=== PATIENT | male | born 1955 | race Caucasian/White ===

== ENCOUNTER 2017-12-24 11:26 | Inpatient (IN) | payer MEDICAID ==
[~2017-12-24] VITALS: Ht 172.7 cm; Wt 107.8 kg
[2017-12-24] MEDS ORDERED: SODIUM CHLORIDE 0.9% 1,000 ML IV ONE ×2 (11:35)
[2017-12-24] MEDS ORDERED: chlordiazePOXIDE HCL 25 MG CAP PO ONE (11:45)
[2017-12-24 12:20] LABS: Basophils # (auto) 0 uL; Basophils % (auto) 0.4 % (0.0-2.0); Eosinophils # (auto) 0 uL; Eosinophils % (auto) 0.5 % (0.0-7.0); Hematocrit 43.9 % (41.0-53.0); Lymphocytes # (auto) 2.2 uL; Lymphocytes % (auto) 23.3 % (10.0-50.0); Mean Corpuscular Hemoglobin 33.4 pg (28.0-32.0); Mean Corpuscular Hgb Conc. 34.2 g/dL (32.0-36.0); Mean Corpuscular Volume 97.6 fL (80.0-100.0); Monocytes # (auto) 0.6 uL; Monocytes % (auto) 6.8 % (0.0-12.0); Neutrophils # (auto) 6.4 uL; Nucleated Red Blood Cells % 0.2 %; Platelet Count (auto) 237 10^3/uL (140-450); White Blood Cell 9.3 10^3/uL (4.4-10.8)
[2017-12-24] MEDS ORDERED: ESCI20TA PO (12:27)
[2017-12-24] MEDS ORDERED: CARI-277 PO (12:27)
[2017-12-24] MEDS ORDERED: ZIPR80CA8 PO ×2 (12:27→14:34)
[2017-12-24] MEDS ORDERED: EZET10TA38 PO (12:27)
[2017-12-24] MEDS ORDERED: LEV50T PO (12:27)
[2017-12-24] MEDS ORDERED: LITH600C4 PO (12:27)
[2017-12-24] MEDS ORDERED: MIRT30TA PO (12:27)
[2017-12-24] MEDS ORDERED: HYDR-392 PO (12:27)
[2017-12-24] MEDS ORDERED: LAMO150T2 PO (12:27)
[2017-12-24 12:40] LABS: Alanine Aminotransferase 62 U/L (16-61); Alkaline Phosphatase 99 U/L (45-117); Anion Gap 12 (5-15); Aspartate Aminotransferase 51 U/L (15-37); BUN/Creatinine Ratio 17.6; Bilirubin, Total 0.3 mg/dL (0.2-1.0); Blood Urea Nitrogen 16 mg/dL (7-18); Carbon Dioxide 18 mmol/L (21-32); Chloride 110 mmol/L (98-107); GFR African American 108 mL/min; GFR Non-African American 89 mL/min; Glucose 96 mg/dL (74-106); Potassium 3.7 mmol/L (3.5-5.1); Sodium 140 mmol/L (136-145); Total Protein 7.8 g/dL (6.4-8.2)
[2017-12-24] MEDS ORDERED: chlordiazePOXIDE HCL 25 MG CAP PO PRN (14:15)
[2017-12-24] MEDS ORDERED: ALBUTEROL SULF 2.5 MG/0.5ML(0.5%) NEB SOLN NEB PRN (14:15)
[2017-12-24] MEDS ORDERED: MORPHINE SULFATE 4 MG/ML SYR/VIAL IV PRN ×3 (14:15)
[2017-12-24] MEDS ORDERED: NITROGLYCERIN 0.4 MG SL TAB SL PRN (14:15)
[2017-12-24] MEDS ORDERED: PROMETHAZINE HCL 25 MG/ML 1ML IV PRN (14:15)
[2017-12-24] MEDS ORDERED: LORazepam 2MG/ML-1ML VIAL IV PRN (14:15)
[2017-12-24] MEDS ORDERED: THIAMINE HCL 100 MG/ML 2ML VIAL IV SCH (14:30)
[2017-12-24] MEDS ORDERED: HYDR-531 PO (14:53)
[2017-12-24] MEDS: HYDROcodone-ACET 10/325MG TAB PO PRN ×2 (14:57→23:10)
[2017-12-24] MEDS: NICOTINE 21MG/24 HR TOPICAL PATCH TD SCH (15:08)
[2017-12-24] MEDS: DOXYCYCLINE HYC 100MG/250ML 250 ML IV SCH (15:08)
[2017-12-24] MEDS: CARISOPRODOL 350 MG TAB PO SCH ×2 (15:27→21:50)
[2017-12-24] MEDS: MULTIPLE VITAMIN IV SCH (16:17)
[2017-12-24] MEDS: [UNRECOGNIZED DRUG - OTHER] IV SCH (16:17)
[2017-12-24] MEDS: MAGNESIUM SULF IV SCH (16:17)
[2017-12-24] MEDS: FOLIC ACID IV SCH (16:17)
[2017-12-24 16:20] LABS: Urine Bacteria NONE SEEN /hpf (None Seen); Urine Blood Negative /uL (Negative); Urine Specific Gravity 1.011 (1.001-1.035); Urine WBC 3 /hpf (0 - 3)
[2017-12-24 17:19] VITALS: BP 121/72
[2017-12-24] MEDS: IPRATROPIUM BROM 0.5 MG/2.5ML INH SOL NEB SCH (18:00)
[2017-12-24] MEDS: ALBUTEROL SULF 2.5 MG/0.5ML(0.5%) NEB SOLN NEB SCH (18:00)
[2017-12-24] MEDS: chlordiazePOXIDE HCL 5 MG CAP PO SCH ×2 (18:14→23:11)
[2017-12-24 18:34] LABS: CRP High Sensitivity 0.16 mg/dL (< 0.3); Uric Acid 7.5 mg/dL (3.5-7.2)
[2017-12-24] MEDS: LITHIUM CARBONATE 300 MG TAB PO SCH (21:50)
[2017-12-24] MEDS: MIRTAZAPINE 30 MG TAB PO SCH (21:50)
[2017-12-24] MEDS: SODIUM CHLOR 0.9% PF (SALINE LOCK) 10ML VIAL IV SCH (21:50)
[2017-12-24] MEDS: ZIPRASIDONE 80 MG PO SCH (21:51)
[2017-12-24 22:00] VITALS: BP 135/78
[2017-12-24] MEDS ORDERED: PATIENTS OWN MEDICATION (Lithium Carbonate 600 MG) PO SCH (22:00)
[2017-12-25] MEDS: ALBUTEROL SULF 2.5 MG/0.5ML(0.5%) NEB SOLN NEB SCH ×4 (00:23→18:08)
[2017-12-25] MEDS: IPRATROPIUM BROM 0.5 MG/2.5ML INH SOL NEB SCH ×4 (00:23→18:08)
[2017-12-25] MEDS: DOXYCYCLINE HYC 100MG/250ML 250 ML IV SCH ×2 (02:27→14:02)
[2017-12-25 05:00] VITALS: BP 126/66
[2017-12-25] MEDS: ZIPRASIDONE 40 MG PO SCH (05:23)
[2017-12-25] MEDS: SODIUM CHLOR 0.9% PF (SALINE LOCK) 10ML VIAL IV SCH ×3 (06:31→21:42)
[2017-12-25] MEDS: CARISOPRODOL 350 MG TAB PO SCH (06:31)
[2017-12-25] MEDS: chlordiazePOXIDE HCL 5 MG CAP PO SCH ×4 (06:31→23:40)
[2017-12-25] MEDS: LEVOTHYROXINE SODIUM 50 MCG TAB PO SCH (06:32)
[2017-12-25] MEDS: HYDROcodone-ACET 10/325MG TAB PO PRN ×2 (06:46→17:40)
[2017-12-25 07:15] LABS: Albumin 3.2 g/dL (3.4-5.0); BUN/Creatinine Ratio 15.5; Bilirubin, Total 0.4 mg/dL (0.2-1.0); Calcium 8.3 mg/dL (8.5-10.1); Potassium 3.9 mmol/L (3.5-5.1); Total Protein 6.3 g/dL (6.4-8.2)
[2017-12-25 08:00] VITALS: BP 130/83
[2017-12-25 09:12] VITALS: BP 130/83
[2017-12-25] MEDS: THIAMINE HCL 100 MG TAB PO SCH (09:55)
[2017-12-25] MEDS: lamoTRIgine 100 MG TAB PO SCH (09:56)
[2017-12-25] MEDS: LITHIUM CARBONATE 300 MG TAB PO SCH ×2 (09:56→21:42)
[2017-12-25] MEDS: EZETIMIBE SIMVASTATIN PO SCH (09:57)
[2017-12-25] MEDS: NICOTINE 21MG/24 HR TOPICAL PATCH TD SCH (09:57)
[2017-12-25] MEDS ORDERED: PATIENTS OWN MEDICATION (Lamotrigine (Lamictal) 1 TAB) PO SCH (10:00)
[2017-12-25 12:24] VITALS: BP 122/78
[2017-12-25 17:00] VITALS: BP 129/81
[2017-12-25 21:40] VITALS: BP 129/73
[2017-12-25] MEDS: MIRTAZAPINE 30 MG TAB PO SCH (21:42)
[2017-12-25] MEDS: ZIPRASIDONE 80 MG PO SCH (22:00)
[2017-12-26] MEDS: ALBUTEROL SULF 2.5 MG/0.5ML(0.5%) NEB SOLN NEB SCH ×4 (00:05→18:50)
[2017-12-26] MEDS: IPRATROPIUM BROM 0.5 MG/2.5ML INH SOL NEB SCH ×4 (00:05→18:50)
[2017-12-26] MEDS: HYDROcodone-ACET 10/325MG TAB PO PRN ×3 (01:39→17:31)
[2017-12-26] MEDS: DOXYCYCLINE HYC 100MG/250ML 250 ML IV SCH ×2 (02:18→13:54)
[2017-12-26 04:50] VITALS: BP 136/85
[2017-12-26 05:57] LABS: Basophils # (auto) 0 uL; Basophils % (auto) 0.3 % (0.0-2.0); Eosinophils # (auto) 0.1 uL; Eosinophils % (auto) 1.6 % (0.0-7.0); Hematocrit 38.6 % (41.0-53.0); Hemoglobin 13.1 g/dL (13.5-17.5); Lymphocytes # (auto) 2.1 uL; Lymphocytes % (auto) 34.5 % (10.0-50.0); Mean Corpuscular Hemoglobin 33.2 pg (28.0-32.0); Mean Corpuscular Hgb Conc. 33.9 g/dL (32.0-36.0); Monocytes # (auto) 0.3 uL; Monocytes % (auto) 5.7 % (0.0-12.0); Neutrophils # (auto) 3.5 uL; Neutrophils % (auto) 57.9 % (37.0-80.0); Nucleated Red Blood Cells % 0.1 %; Platelet Count (auto) 194 10^3/uL (140-450); Red Blood Cells 3.94 10^6/uL (4.5-5.90); Red Cell Distribution Width 13.9 % (11.8-14.3)
[2017-12-26 06:13] LABS: Albumin 3.4 g/dL (3.4-5.0); BUN/Creatinine Ratio 12.3; Calcium 9.2 mg/dL (8.5-10.1); Magnesium 2.2 mg/dL (1.6-2.6); Potassium 3.8 mmol/L (3.5-5.1)
[2017-12-26] MEDS: ZIPRASIDONE 40 MG PO SCH (06:18)
[2017-12-26] MEDS: chlordiazePOXIDE HCL 5 MG CAP PO SCH ×4 (06:18→23:40)
[2017-12-26] MEDS: SODIUM CHLOR 0.9% PF (SALINE LOCK) 10ML VIAL IV SCH ×3 (06:18→21:25)
[2017-12-26] MEDS: LEVOTHYROXINE SODIUM 50 MCG TAB PO SCH (06:18)
[2017-12-26 06:24] LABS: Bilirubin, Total 0.3 mg/dL (0.2-1.0); Total Protein 6.7 g/dL (6.4-8.2)
[2017-12-26 09:03] VITALS: BP 152/81
[2017-12-26] MEDS: lamoTRIgine 100 MG TAB PO SCH (09:14)
[2017-12-26] MEDS: LITHIUM CARBONATE 300 MG TAB PO SCH ×2 (09:15→21:23)
[2017-12-26] MEDS: THIAMINE HCL 100 MG TAB PO SCH (09:15)
[2017-12-26] MEDS: EZETIMIBE SIMVASTATIN PO SCH (09:16)
[2017-12-26] MEDS: NICOTINE 21MG/24 HR TOPICAL PATCH TD SCH (09:16)
[2017-12-26 12:01] VITALS: BP 122/74
[2017-12-26] MEDS: [UNRECOGNIZED DRUG - OTHER] IV SCH (12:25)
[2017-12-26] MEDS: FOLIC ACID IV SCH (12:25)
[2017-12-26] MEDS: MAGNESIUM SULF IV SCH (12:25)
[2017-12-26] MEDS: MULTIPLE VITAMIN IV SCH (12:25)
[2017-12-26 17:36] VITALS: BP 128/70
[2017-12-26 19:30] VITALS: BP 128/70
[2017-12-26] MEDS: MIRTAZAPINE 30 MG TAB PO SCH (21:23)
[2017-12-26] MEDS: ZIPRASIDONE 80 MG PO SCH (21:24)
[2017-12-26 22:11] VITALS: BP 116/72
[2017-12-27] MEDS: IPRATROPIUM BROM 0.5 MG/2.5ML INH SOL NEB SCH ×3 (01:01→11:03)
[2017-12-27] MEDS: ALBUTEROL SULF 2.5 MG/0.5ML(0.5%) NEB SOLN NEB SCH ×3 (01:01→11:03)
[2017-12-27] MEDS: DOXYCYCLINE HYC 100MG/250ML 250 ML IV SCH ×2 (02:15→14:02)
[2017-12-27] MEDS: HYDROcodone-ACET 10/325MG TAB PO PRN (04:18)
[2017-12-27 04:52] VITALS: BP 136/79
[2017-12-27] MEDS: LEVOTHYROXINE SODIUM 50 MCG TAB PO SCH (06:10)
[2017-12-27] MEDS: chlordiazePOXIDE HCL 5 MG CAP PO SCH ×2 (06:10→12:12)
[2017-12-27] MEDS: ZIPRASIDONE 40 MG PO SCH (06:13)
[2017-12-27] MEDS: SODIUM CHLOR 0.9% PF (SALINE LOCK) 10ML VIAL IV SCH ×2 (06:13→14:03)
[2017-12-27 06:58] LABS: Albumin 3.6 g/dL (3.4-5.0); BUN/Creatinine Ratio 13.3; Bilirubin, Total 0.3 mg/dL (0.2-1.0); Calcium 8.9 mg/dL (8.5-10.1); Potassium 4.3 mmol/L (3.5-5.1); Total Protein 7.1 g/dL (6.4-8.2)
[2017-12-27] MEDS: THIAMINE HCL 100 MG TAB PO SCH (08:40)
[2017-12-27] MEDS: lamoTRIgine 100 MG TAB PO SCH (08:40)
[2017-12-27] MEDS: LITHIUM CARBONATE 300 MG TAB PO SCH (08:40)
[2017-12-27] MEDS: EZETIMIBE SIMVASTATIN PO SCH (08:41)
[2017-12-27] MEDS: NICOTINE 21MG/24 HR TOPICAL PATCH TD SCH (08:41)
[2017-12-27 08:56] VITALS: BP 113/64
[2017-12-27] MEDS: [UNRECOGNIZED DRUG - OTHER] IV SCH (12:11)
[2017-12-27] MEDS: MAGNESIUM SULF IV SCH (12:11)
[2017-12-27] MEDS: MULTIPLE VITAMIN IV SCH (12:11)
[2017-12-27] MEDS: FOLIC ACID IV SCH (12:11)
[2017-12-27 12:27] VITALS: BP 119/71
== END 2017-12-27 15:11 | disposition home or self-care (01) | DRG 140 ==
LOC: ER 11:26 → TELE 11:27 → TELE-EAST 20:15
PROVIDERS: ADMIT Internal Medicine; ATTEND Internal Medicine
DX: J44.1 Chronic obstructive pulmonary disease with (acute) exacerbation (principal); F10.231 Alcohol dependence with withdrawal delirium; K76.0 Fatty (change of) liver, not elsewhere classified; K70.9 Alcoholic liver disease, unspecified; E03.9 Hypothyroidism, unspecified; E78.5 Hyperlipidemia, unspecified; F31.9 Bipolar disorder, unspecified; K40.20 Bilateral inguinal hernia, without obstruction or gangrene, not specified as recurrent; K42.9 Umbilical hernia without obstruction or gangrene; G89.21 Chronic pain due to trauma; F17.210 Nicotine dependence, cigarettes, uncomplicated; S93.402A Sprain of unspecified ligament of left ankle, initial encounter; X58.XXXA Exposure to other specified factors, initial encounter; Y93.89 Activity, other specified; V29.9XXS Motorcycle rider (driver) (passenger) injured in unspecified traffic accident, sequela; Y92.89 Other specified places as the place of occurrence of the external cause
CPT/HCPCS: 36415; 71045; 73590; 73610; 73700; 74176; 80053; 80061; 80178; 80320; 81001; 83735; 83880; 84439; 84443; 84484; 84550; 85025; 85652; 86141; 87804; 93306; 93971; 94640; 96361; 96365; J3490

== ENCOUNTER → 2017-12-24 | Emergency (ER) | payer MEDICAID ==
[~2017-12-24] MED LIST: CARI-277 PO; ESCI20TA PO; EZET10TA38 PO; HYDR-392 PO; HYDR-531 PO; LAMO150T2 PO; LEV50T PO; LITH600C4 PO; MIRT30TA PO; ZIPR80CA8 PO
== END | disposition left against medical advice (07) ==
LOC: ER 11:31
DX: M79.89 Other specified soft tissue disorders (principal); Z53.21 Procedure and treatment not carried out due to patient leaving prior to being seen by health care provider
CPT/HCPCS: 93005; J7030

== ENCOUNTER 2022-06-23 13:02 | Inpatient (IN) | payer OTHER, MEDICAID ==
[~2022-06-23] VITALS: Ht 172.7 cm; Wt 97.6 kg
[~2022-06-23 13:02] MED LIST changes: +EZET10TA24 PO; -EZET10TA38 PO; -HYDR-392 PO; +MIRT-66 PO; -MIRT30TA PO; +ZIPR80CA37 PO; -ZIPR80CA8 PO
[2022-06-23] MEDS ORDERED: SODIUM CHLORIDE 0.9% 1,000 ML IV ONE ×2 (13:45)
[2022-06-23] MEDS ORDERED: metroNIDAZOLE 500MG/100ML 100 ML IV ONE (13:45)
[2022-06-23] MEDS ORDERED: cefTRIAXone 1GM/50ML D5W 50 ML IV ONE (13:45)
[2022-06-23] MEDS ORDERED: GASTROGRAFIN 120 ML SOL ONE (13:46)
[2022-06-23 15:45] LABS: Basophils # (auto) 0 10 ^3/uL (0-0.2); Basophils % (auto) 0.3 % (0.0-2.0); Eosinophils # (auto) 0.1 10 ^3/uL (0-0.8); Eosinophils % (auto) 0.5 % (0.0-7.0); Hematocrit 38.2 % (41.0-53.0); Hemoglobin 12.6 g/dL (13.5-17.5); Lymphocytes # (auto) 1.6 10 ^3/uL (0.4-5.4); Lymphocytes % (auto) 12.3 % (10.0-50.0); Mean Corpuscular Hemoglobin 30.4 pg (28.0-32.0); Mean Corpuscular Hgb Conc. 32.9 g/dL (32.0-36.0); Mean Corpuscular Volume 92.4 fL (80.0-100.0); Monocytes # (auto) 0.9 10 ^3/uL (0-1.3); Monocytes % (auto) 6.7 % (0.0-12.0); Neutrophils # (auto) 10.6 10 ^3/uL (1.6-8.6); Neutrophils % (auto) 80.2 % (37.0-80.0); Red Blood Cells 4.13 10^6/uL (4.5-5.90); Red Cell Distribution Width 13.5 % (11.8-14.3); White Blood Cell 13.3 10^3/uL (4.4-10.8)
[2022-06-23 15:58] LABS: Albumin 3.7 g/dL (3.4-5.0); Calcium 9.4 mg/dL (8.5-10.1); Potassium 3.7 mmol/L (3.5-5.1)
[2022-06-23 16:01] LABS: Total Protein 7.5 g/dL (6.4-8.2)
[2022-06-23 16:28] LABS: INR 0.96 (0.9-1.15)
[2022-06-23] MEDS ORDERED: METOPROLOL TARTRATE 1MG/1ML-5ML VIAL IV PRN (18:15)
[2022-06-23] MEDS ORDERED: ONDANSETRON HCL 4 MG/2 ML VIAL IV PRN (18:15)
[2022-06-23] MEDS ORDERED: DEXTROSE (50%) 50ML SYRG IV PRN (18:15)
[2022-06-23] MEDS: D5W/ SOD CHL 0.9%/KCL 20MEQ 1,000 ML IV SCH (18:32)
[2022-06-23] MEDS ORDERED: ROCURONIUM 10MG/ML 10ML VIAL IV ONE (19:59)
[2022-06-23] MEDS ORDERED: SUCCINYLCHOLINE CHLORIDE 20 MG/ML 10ML VIAL IV ONE (19:59)
[2022-06-23] MEDS ORDERED: DexAMETHasone SOD PHOS 10MG/1ML VIAL INJ ONE (20:04)
[2022-06-23] MEDS ORDERED: PROPOFOL 10 MG/ML 20 ML IV ONE (20:04)
[2022-06-23] MEDS ORDERED: NEOSTIGMINE 1 MG/ML INJ (10mg/10ML VIAL) ONE (20:04)
[2022-06-23] MEDS ORDERED: GLYCOPYRROLATE 0.2 MG/ML 1ML VIAL ONE (20:04)
[2022-06-23] MEDS ORDERED: ONDANSETRON HCL 4 MG/2 ML VIAL ONE ×2 (20:08→20:27)
[2022-06-23] MEDS ORDERED: SODIUM CHLORIDE LOCK 20 ML ONE (20:08)
[2022-06-23] MEDS ORDERED: fentaNYL CITRATE 100 MCG/2 ML VL ONE (20:08)
[2022-06-23] MEDS ORDERED: MIDAZOLAM HCL 2MG/2ML 2ml VIAL (1mg/ml) ONE (20:08)
[2022-06-23] MEDS ORDERED: ROPIVACAINE 0.5% (5MG/ML) 20ML AMPULE IJ ONE (20:10)
[2022-06-23] MEDS ORDERED: POVIDONE IODINE 10 % TOPICAL OINT 30GM TOP ONE (20:10)
[2022-06-23] MEDS ORDERED: MORPHINE SULFATE 4 MG/ML SYR/VIAL IV PRN (20:30)
[2022-06-23] MEDS ORDERED: METOCLOPRAMIDE HCL 5MG/ml INJ 2ml VIAL IV PRN (20:30)
[2022-06-23] MEDS ORDERED: ACCU-CHEK COMFORT CURVE STRIP VI ONE (20:30)
[2022-06-23] MEDS ORDERED: HYDROmorphone HCL 2 MG/ML VL/or syr IV PRN ×2 (20:30)
[2022-06-23] MEDS ORDERED: MEPERIDINE HCL (25 MG/ML) 1ML VIAL ONE (20:45)
[2022-06-23] MEDS ORDERED: fentaNYL CITRATE 5 ML ONE (22:17)
[2022-06-23] MEDS ORDERED: ceFAZolin 1GM VL ONE (22:34)
[2022-06-23] MEDS ORDERED: MORPHINE SULFATE INJ 2 MG/ml SYRG IV PRN (23:30)
[2022-06-23] MEDS ORDERED: NITROGLYCERIN 0.4 MG SL TAB SL PRN (23:30)
[2022-06-24] MEDS: ACCU-CHEK COMFORT CURVE STRIP VI SCH ×5 (01:13→22:58)
[2022-06-24] MEDS: InsuLIN REG 1unit/0.01ml Soln (100units/ml) SC SCH ×5 (01:20→22:57)
[2022-06-24] MEDS: PIPERACILLIN-TAZOB 3.375GM 100 ML IV SCH ×5 (01:35→23:03)
[2022-06-24 02:10] VITALS: BP 124/73
[2022-06-24] MEDS: D5W/ SOD CHL 0.9%/KCL 20MEQ 1,000 ML IV SCH ×3 (02:35→16:02)
[2022-06-24 05:00] VITALS: BP 115/62
[2022-06-24] MEDS: MORPHINE SULFATE 4 MG/ML SYR/VIAL IV PRN (06:39)
[2022-06-24 07:07] LABS: Hemoglobin 12.1 g/dL (13.5-17.5); Mean Corpuscular Hgb Conc. 33.5 g/dL (32.0-36.0); Mean Corpuscular Volume 92.3 fL (80.0-100.0); Red Blood Cells 3.89 10^6/uL (4.5-5.90); Red Cell Distribution Width 13.5 % (11.8-14.3); White Blood Cell 7.4 10^3/uL (4.4-10.8)
[2022-06-24 07:13] LABS: Potassium 3.7 mmol/L (3.5-5.1)
[2022-06-24 07:14] LABS: Basophils % (manual) 0 (0.0-2.0); Blast Cells 0; Eosinophils % (manual) 0 (0-7); Metamyelocytes % 0; Myelocytes % 0; Promyelocytes % 0; Reactive Lymphocytes 0
[2022-06-24 07:24] LABS: Albumin 2.9 g/dL (3.4-5.0); BUN/Creatinine Ratio 15.5; Bilirubin, Total 2.6 mg/dL (0.2-1.0); Calcium 9.1 mg/dL (8.5-10.1)
[2022-06-24 08:03] LABS: Band Neutrophils % (manual) 9; Lymphocytes % (manual) 7 (10.0-50.0); Monocytes % (manual) 7 (0-12)
[2022-06-24 09:00] VITALS: BP 113/75
[2022-06-24] MEDS: FAMOTIDINE (10MG/ML) 2ML VL IV SCH ×3 (09:03→21:49)
[2022-06-24 13:00] VITALS: BP 105/63
[2022-06-24] MEDS: MORPHINE SULFATE INJ 2 MG/ml SYRG IV PRN (14:51)
[2022-06-24] MEDS ORDERED: CLINIMIX PER PHARMACY 0 ML IV SCH (15:45)
[2022-06-24 16:57] VITALS: BP 115/65
[2022-06-24] MEDS ORDERED: AMINO ACID INFUSION IN D10W 1,000 ML IV NR (20:00)
[2022-06-24 22:00] VITALS: BP 116/62
[2022-06-25] MEDS: MORPHINE SULFATE 4 MG/ML SYR/VIAL IV PRN ×3 (01:06→14:56)
[2022-06-25 05:00] VITALS: BP 138/78
[2022-06-25] MEDS: InsuLIN REG 1unit/0.01ml Soln (100units/ml) SC SCH ×3 (06:00→18:00)
[2022-06-25] MEDS: ACCU-CHEK COMFORT CURVE STRIP VI SCH ×3 (06:16→18:00)
[2022-06-25] MEDS: PIPERACILLIN-TAZOB 3.375GM 100 ML IV SCH ×3 (06:38→18:18)
[2022-06-25 06:49] LABS: Basophils # (auto) 0.1 10 ^3/uL (0-0.2); Basophils % (auto) 0.5 % (0.0-2.0); Eosinophils # (auto) 0 10 ^3/uL (0-0.8); Eosinophils % (auto) 0.2 % (0.0-7.0); Hematocrit 32.9 % (41.0-53.0); Hemoglobin 11.1 g/dL (13.5-17.5); Lymphocytes # (auto) 1.4 10 ^3/uL (0.4-5.4); Lymphocytes % (auto) 12.6 % (10.0-50.0); Mean Corpuscular Hemoglobin 31.1 pg (28.0-32.0); Mean Corpuscular Hgb Conc. 33.7 g/dL (32.0-36.0); Mean Corpuscular Volume 92.3 fL (80.0-100.0); Monocytes # (auto) 0.8 10 ^3/uL (0-1.3); Monocytes % (auto) 6.9 % (0.0-12.0); Neutrophils % (auto) 79.8 % (37.0-80.0); Nucleated Red Blood Cells % 0.1 %; Red Blood Cells 3.56 10^6/uL (4.5-5.90); Red Cell Distribution Width 13.7 % (11.8-14.3); White Blood Cell 11.2 10^3/uL (4.4-10.8)
[2022-06-25 06:53] LABS: Albumin 2.6 g/dL (3.4-5.0); Calcium 9.1 mg/dL (8.5-10.1); Magnesium 2.5 mg/dL (1.6-2.6); Potassium 3.9 mmol/L (3.5-5.1)
[2022-06-25 06:57] LABS: BUN/Creatinine Ratio 22.6; Bilirubin, Total 1.3 mg/dL (0.2-1.0); Total Protein 7.2 g/dL (6.4-8.2)
[2022-06-25 09:00] VITALS: BP 145/78
[2022-06-25] MEDS: D5W/ SOD CHL 0.9%/KCL 20MEQ 1,000 ML IV SCH ×2 (10:19→20:21)
[2022-06-25] MEDS: FAMOTIDINE (10MG/ML) 2ML VL IV SCH ×2 (10:34→22:44)
[2022-06-25] MEDS: LEVOTHYROXINE SODIUM 100 MCG/5 ML INJ IV SCH (10:35)
[2022-06-25] MEDS: ENOXAPARIN SOD 40 MG/0.4 ML SYRINGE SC SCH (10:36)
[2022-06-25] MEDS ORDERED: POTASSIUM PHOSPHATE 22 MEQ in SODIUM CHL 0.9% 100 ML IV ONE (12:00)
[2022-06-25 13:00] VITALS: BP 144/78
[2022-06-25] MEDS ORDERED: SODIUM PHOSPHATES 20 MEQ in SODIUM CHL 0.9% 100 ML IV ONE (16:00)
[2022-06-25 17:00] VITALS: BP 132/69
[2022-06-25] MEDS: MORPHINE SULFATE INJ 2 MG/ml SYRG IV PRN (18:17)
[2022-06-25] MEDS: AMINO ACID INFUSION IN D10W 1,000 ML IV NR (20:31)
[2022-06-25 22:00] VITALS: BP 134/78
[2022-06-26] MEDS: ACCU-CHEK COMFORT CURVE STRIP VI SCH ×5 (00:29→23:22)
[2022-06-26] MEDS: PIPERACILLIN-TAZOB 3.375GM 100 ML IV SCH ×5 (00:29→23:23)
[2022-06-26] MEDS: HALOPERIDOL LACTATE 5 MG/ML INJ VIAL IM PRN ×2 (02:47→22:36)
[2022-06-26 05:00] VITALS: BP 145/73
[2022-06-26] MEDS: InsuLIN REG 1unit/0.01ml Soln (100units/ml) SC SCH ×5 (05:41→23:22)
[2022-06-26] MEDS: MORPHINE SULFATE 4 MG/ML SYR/VIAL IV PRN ×3 (06:56→18:29)
[2022-06-26 08:20] LABS: Basophils # (auto) 0 10 ^3/uL (0-0.2); Basophils % (auto) 0.2 % (0.0-2.0); Eosinophils # (auto) 0.1 10 ^3/uL (0-0.8); Hemoglobin 9.8 g/dL (13.5-17.5); Lymphocytes # (auto) 0.9 10 ^3/uL (0.4-5.4); Lymphocytes % (auto) 13.2 % (10.0-50.0); Mean Corpuscular Hemoglobin 31.2 pg (28.0-32.0); Mean Corpuscular Hgb Conc. 33.7 g/dL (32.0-36.0); Mean Corpuscular Volume 92.5 fL (80.0-100.0); Monocytes # (auto) 0.4 10 ^3/uL (0-1.3); Monocytes % (auto) 5.2 % (0.0-12.0); Neutrophils # (auto) 5.7 10 ^3/uL (1.6-8.6); Neutrophils % (auto) 80.4 % (37.0-80.0); Red Blood Cells 3.13 10^6/uL (4.5-5.90); Red Cell Distribution Width 13.7 % (11.8-14.3); White Blood Cell 7.1 10^3/uL (4.4-10.8)
[2022-06-26 08:37] LABS: Potassium 3.8 mmol/L (3.5-5.1)
[2022-06-26 08:45] LABS: Albumin 2.3 g/dL (3.4-5.0); BUN/Creatinine Ratio 26.1; Bilirubin, Total 0.9 mg/dL (0.2-1.0); Calcium 8.5 mg/dL (8.5-10.1); Magnesium 2.3 mg/dL (1.6-2.6); Phosphorus 3.2 mg/dL (2.5-4.90); Total Protein 5.7 g/dL (6.4-8.2)
[2022-06-26 09:00] VITALS: BP 115/66
[2022-06-26] MEDS: ENOXAPARIN SOD 40 MG/0.4 ML SYRINGE SC SCH (10:28)
[2022-06-26] MEDS: LEVOTHYROXINE SODIUM 100 MCG/5 ML INJ IV SCH (10:28)
[2022-06-26] MEDS: FAMOTIDINE (10MG/ML) 2ML VL IV SCH ×2 (10:28→21:03)
[2022-06-26] MEDS: NICOTINE 14 MG/24HR TOPICAL PATCH TD SCH (10:29)
[2022-06-26] MEDS: D5W/ SOD CHL 0.9%/KCL 20MEQ 1,000 ML IV SCH (10:41)
[2022-06-26 13:00] VITALS: BP 124/61
[2022-06-26 16:41] VITALS: BP 129/72
[2022-06-26] MEDS: AMINO ACID INFUSION IN D10W 1,000 ML IV NR (20:18)
[2022-06-26 21:33] VITALS: BP 132/58
[2022-06-26] MEDS: MORPHINE SULFATE INJ 2 MG/ml SYRG IV PRN (22:44)
[2022-06-26] MEDS ORDERED: OLAN20TA PO (23:51)
[2022-06-27] MEDS: D5W/ SOD CHL 0.9%/KCL 20MEQ 1,000 ML IV SCH ×2 (01:26→15:15)
[2022-06-27 04:38] VITALS: BP 124/72
[2022-06-27] MEDS: ACCU-CHEK COMFORT CURVE STRIP VI SCH ×3 (05:31→18:00)
[2022-06-27] MEDS: InsuLIN REG 1unit/0.01ml Soln (100units/ml) SC SCH ×3 (05:41→18:00)
[2022-06-27] MEDS: PIPERACILLIN-TAZOB 3.375GM 100 ML IV SCH ×3 (05:41→18:21)
[2022-06-27 07:33] LABS: Basophils # (auto) 0 10 ^3/uL (0-0.2); Basophils % (auto) 0.2 % (0.0-2.0); Eosinophils # (auto) 0.1 10 ^3/uL (0-0.8); Eosinophils % (auto) 1.5 % (0.0-7.0); Hematocrit 31.7 % (41.0-53.0); Hemoglobin 10.6 g/dL (13.5-17.5); Lymphocytes # (auto) 1.1 10 ^3/uL (0.4-5.4); Lymphocytes % (auto) 13.8 % (10.0-50.0); Mean Corpuscular Hgb Conc. 33.5 g/dL (32.0-36.0); Mean Corpuscular Volume 92.6 fL (80.0-100.0); Monocytes # (auto) 0.5 10 ^3/uL (0-1.3); Monocytes % (auto) 6.7 % (0.0-12.0); Neutrophils # (auto) 6.3 10 ^3/uL (1.6-8.6); Neutrophils % (auto) 77.8 % (37.0-80.0); Red Blood Cells 3.42 10^6/uL (4.5-5.90); Red Cell Distribution Width 13.3 % (11.8-14.3); White Blood Cell 8.1 10^3/uL (4.4-10.8)
[2022-06-27 07:49] LABS: Calcium 8.6 mg/dL (8.5-10.1); Potassium 4.4 mmol/L (3.5-5.1)
[2022-06-27 07:51] LABS: BUN/Creatinine Ratio 23.8
[2022-06-27 09:00] VITALS: BP 107/60
[2022-06-27] MEDS: NICOTINE 14 MG/24HR TOPICAL PATCH TD SCH (10:00)
[2022-06-27] MEDS: LEVOTHYROXINE SODIUM 100 MCG/5 ML INJ IV SCH (10:00)
[2022-06-27] MEDS: FAMOTIDINE (10MG/ML) 2ML VL IV SCH ×2 (10:27→22:14)
[2022-06-27] MEDS: ENOXAPARIN SOD 40 MG/0.4 ML SYRINGE SC SCH (10:28)
[2022-06-27] MEDS: MORPHINE SULFATE INJ 2 MG/ml SYRG IV PRN ×3 (10:31→22:14)
[2022-06-27 13:00] VITALS: BP 126/70
[2022-06-27 13:52] LABS: Magnesium 2.1 mg/dL (1.6-2.6); Phosphorus 3.2 mg/dL (2.5-4.90)
[2022-06-27] MEDS ORDERED: TEMAZEPAM 15 MG CAP PO PRN (14:00)
[2022-06-27 14:18] LABS: Albumin 2.4 g/dL (3.4-5.0); Calcium 9.1 mg/dL (8.5-10.1); Potassium 4.1 mmol/L (3.5-5.1)
[2022-06-27 14:21] LABS: BUN/Creatinine Ratio 18.9; Bilirubin, Total 0.7 mg/dL (0.2-1.0); Total Protein 6.6 g/dL (6.4-8.2)
[2022-06-27 17:00] VITALS: BP 123/75
[2022-06-27 22:00] VITALS: BP 120/83
[2022-06-27] MEDS: LITHIUM CARBONATE 300 MG TAB PO SCH (22:14)
[2022-06-27] MEDS: OLANZapine 5 MG TAB PO SCH (22:14)
[2022-06-27] MEDS: MIRTAZAPINE 30 MG TAB PO SCH (22:14)
[2022-06-28] MEDS: ACCU-CHEK COMFORT CURVE STRIP VI SCH ×5 (00:13→23:22)
[2022-06-28] MEDS: InsuLIN REG 1unit/0.01ml Soln (100units/ml) SC SCH ×5 (00:14→23:44)
[2022-06-28] MEDS: PIPERACILLIN-TAZOB 3.375GM 100 ML IV SCH ×5 (03:32→23:48)
[2022-06-28 05:00] VITALS: BP 123/59
[2022-06-28] MEDS: D5W/ SOD CHL 0.9%/KCL 20MEQ 1,000 ML IV SCH ×2 (05:56→19:51)
[2022-06-28 07:00] LABS: Basophils # (auto) 0 10 ^3/uL (0-0.2); Basophils % (auto) 0.3 % (0.0-2.0); Eosinophils # (auto) 0.1 10 ^3/uL (0-0.8); Eosinophils % (auto) 1.5 % (0.0-7.0); Hematocrit 32.5 % (41.0-53.0); Lymphocytes # (auto) 1.5 10 ^3/uL (0.4-5.4); Lymphocytes % (auto) 18.5 % (10.0-50.0); Mean Corpuscular Hemoglobin 30.5 pg (28.0-32.0); Mean Corpuscular Hgb Conc. 33.8 g/dL (32.0-36.0); Mean Corpuscular Volume 90.4 fL (80.0-100.0); Monocytes # (auto) 0.6 10 ^3/uL (0-1.3); Monocytes % (auto) 7.8 % (0.0-12.0); Neutrophils # (auto) 5.7 10 ^3/uL (1.6-8.6); Neutrophils % (auto) 71.9 % (37.0-80.0); Red Cell Distribution Width 13.4 % (11.8-14.3); White Blood Cell 7.9 10^3/uL (4.4-10.8)
[2022-06-28 07:07] LABS: Calcium 8.9 mg/dL (8.5-10.1)
[2022-06-28 07:50] VITALS: BP 111/66
[2022-06-28] MEDS: FAMOTIDINE (10MG/ML) 2ML VL IV SCH ×2 (10:28→21:09)
[2022-06-28] MEDS: NICOTINE 14 MG/24HR TOPICAL PATCH TD SCH (10:28)
[2022-06-28] MEDS: LEVOTHYROXINE SODIUM 100 MCG/5 ML INJ IV SCH (10:28)
[2022-06-28] MEDS: OLANZapine 5 MG TAB PO SCH ×2 (10:28→21:10)
[2022-06-28] MEDS: ENOXAPARIN SOD 40 MG/0.4 ML SYRINGE SC SCH (10:28)
[2022-06-28] MEDS: LITHIUM CARBONATE 300 MG TAB PO SCH ×2 (10:28→21:10)
[2022-06-28] MEDS ORDERED: AMINO ACID INFUSION IN D10W 1,000 ML IV NR ×2 (12:15→20:00)
[2022-06-28 12:45] VITALS: BP 118/68
[2022-06-28 16:30] VITALS: BP 105/70
[2022-06-28] MEDS: MIRTAZAPINE 30 MG TAB PO SCH (21:10)
[2022-06-28 22:00] VITALS: BP 116/66
[2022-06-28] MEDS: MORPHINE SULFATE INJ 2 MG/ml SYRG IV PRN (23:50)
[2022-06-29 05:00] VITALS: BP 118/66
[2022-06-29] MEDS: PIPERACILLIN-TAZOB 3.375GM 100 ML IV SCH ×2 (05:33→12:26)
[2022-06-29] MEDS: InsuLIN REG 1unit/0.01ml Soln (100units/ml) SC SCH ×4 (05:34→23:19)
[2022-06-29] MEDS: ACCU-CHEK COMFORT CURVE STRIP VI SCH ×4 (05:34→23:19)
[2022-06-29 06:05] LABS: Basophils # (auto) 0 10 ^3/uL (0-0.2); Basophils % (auto) 0.2 % (0.0-2.0); Eosinophils # (auto) 0.1 10 ^3/uL (0-0.8); Eosinophils % (auto) 1.4 % (0.0-7.0); Hematocrit 33.3 % (41.0-53.0); Hemoglobin 11.4 g/dL (13.5-17.5); Lymphocytes # (auto) 1.5 10 ^3/uL (0.4-5.4); Lymphocytes % (auto) 17.4 % (10.0-50.0); Mean Corpuscular Hgb Conc. 34.1 g/dL (32.0-36.0); Mean Corpuscular Volume 90.7 fL (80.0-100.0); Monocytes # (auto) 0.7 10 ^3/uL (0-1.3); Monocytes % (auto) 7.6 % (0.0-12.0); Neutrophils # (auto) 6.5 10 ^3/uL (1.6-8.6); Neutrophils % (auto) 73.4 % (37.0-80.0); Red Blood Cells 3.68 10^6/uL (4.5-5.90); Red Cell Distribution Width 13.4 % (11.8-14.3); White Blood Cell 8.8 10^3/uL (4.4-10.8)
[2022-06-29 08:10] VITALS: BP 118/76
[2022-06-29 09:00] VITALS: BP 118/76
[2022-06-29] MEDS: FAMOTIDINE (10MG/ML) 2ML VL IV SCH ×2 (09:51→22:00)
[2022-06-29] MEDS: LEVOTHYROXINE SODIUM 100 MCG/5 ML INJ IV SCH (09:51)
[2022-06-29] MEDS: OLANZapine 5 MG TAB PO SCH ×2 (09:52→22:00)
[2022-06-29] MEDS: LITHIUM CARBONATE 300 MG TAB PO SCH ×2 (09:52→22:00)
[2022-06-29] MEDS: ENOXAPARIN SOD 40 MG/0.4 ML SYRINGE SC SCH (09:52)
[2022-06-29] MEDS: NICOTINE 14 MG/24HR TOPICAL PATCH TD SCH (09:53)
[2022-06-29] MEDS: D5W/ SOD CHL 0.9%/KCL 20MEQ 1,000 ML IV SCH (10:09)
[2022-06-29 13:00] VITALS: BP 120/78
[2022-06-29] MEDS: MORPHINE SULFATE 4 MG/ML SYR/VIAL IV PRN (13:50)
[2022-06-29 17:00] VITALS: BP 110/84
[2022-06-29] MEDS: MIRTAZAPINE 30 MG TAB PO SCH (22:00)
[2022-06-29 23:34] VITALS: BP 104/62
[2022-06-30] VITALS (7 sets, daily range): BP systolic 103–130; BP diastolic 50–78
[2022-06-30] MEDS: D5W/ SOD CHL 0.9%/KCL 20MEQ 1,000 ML IV SCH ×2 (00:27→15:02)
[2022-06-30] MEDS: ACCU-CHEK COMFORT CURVE STRIP VI SCH ×4 (05:52→23:05)
[2022-06-30] MEDS: InsuLIN REG 1unit/0.01ml Soln (100units/ml) SC SCH ×4 (05:52→23:05)
[2022-06-30] MEDS: FAMOTIDINE (10MG/ML) 2ML VL IV SCH ×2 (09:45→23:03)
[2022-06-30] MEDS: LEVOTHYROXINE SODIUM 100 MCG/5 ML INJ IV SCH (09:46)
[2022-06-30] MEDS: LITHIUM CARBONATE 300 MG TAB PO SCH ×2 (09:46→23:48)
[2022-06-30] MEDS: OLANZapine 5 MG TAB PO SCH ×2 (09:46→22:57)
[2022-06-30] MEDS: ENOXAPARIN SOD 40 MG/0.4 ML SYRINGE SC SCH (09:46)
[2022-06-30] MEDS: NICOTINE 14 MG/24HR TOPICAL PATCH TD SCH (09:47)
[2022-06-30] MEDS: MORPHINE SULFATE INJ 2 MG/ml SYRG IV PRN ×2 (09:47→23:44)
[2022-06-30] MEDS: MIRTAZAPINE 30 MG TAB PO SCH (22:58)
[2022-07-01] MEDS: D5W/ SOD CHL 0.9%/KCL 20MEQ 1,000 ML IV SCH ×2 (04:14→23:22)
[2022-07-01 05:00] VITALS: BP 127/81
[2022-07-01] MEDS: InsuLIN REG 1unit/0.01ml Soln (100units/ml) SC SCH ×3 (06:00→17:31)
[2022-07-01] MEDS: ACCU-CHEK COMFORT CURVE STRIP VI SCH ×3 (06:42→17:30)
[2022-07-01] MEDS: LEVOTHYROXINE SODIUM 50 MCG TAB PO SCH (06:43)
[2022-07-01 08:20] VITALS: BP 114/63
[2022-07-01] MEDS: OLANZapine 5 MG TAB PO SCH ×2 (09:23→21:55)
[2022-07-01] MEDS: NICOTINE 14 MG/24HR TOPICAL PATCH TD SCH (09:23)
[2022-07-01] MEDS: LITHIUM CARBONATE 300 MG TAB PO SCH ×2 (09:23→21:55)
[2022-07-01] MEDS: FAMOTIDINE (10MG/ML) 2ML VL IV SCH ×2 (09:23→21:58)
[2022-07-01] MEDS: ENOXAPARIN SOD 40 MG/0.4 ML SYRINGE SC SCH (09:24)
[2022-07-01] MEDS: EZETIMIBE SIMVASTATIN PO SCH (10:00)
[2022-07-01 12:25] VITALS: BP 122/60
[2022-07-01 16:10] VITALS: BP 157/79
[2022-07-01 20:00] VITALS: BP 91/67
[2022-07-01] MEDS: MORPHINE SULFATE INJ 2 MG/ml SYRG IV PRN (20:21)
[2022-07-01 21:42] VITALS: BP 95/67
[2022-07-01] MEDS: MIRTAZAPINE 30 MG TAB PO SCH (21:56)
[2022-07-02] MEDS: ACCU-CHEK COMFORT CURVE STRIP VI SCH ×4 (00:17→18:01)
[2022-07-02 05:10] VITALS: BP 107/59
[2022-07-02] MEDS: InsuLIN REG 1unit/0.01ml Soln (100units/ml) SC SCH ×4 (06:00→18:00)
[2022-07-02] MEDS: LEVOTHYROXINE SODIUM 50 MCG TAB PO SCH (06:10)
[2022-07-02 09:00] VITALS: BP 119/63
[2022-07-02] MEDS: D5W/ SOD CHL 0.9%/KCL 20MEQ 1,000 ML IV SCH (09:39)
[2022-07-02] MEDS: FAMOTIDINE (10MG/ML) 2ML VL IV SCH ×2 (10:00→11:14)
[2022-07-02] MEDS: EZETIMIBE SIMVASTATIN PO SCH (10:00)
[2022-07-02] MEDS: LITHIUM CARBONATE 300 MG TAB PO SCH ×2 (11:14→21:38)
[2022-07-02] MEDS: OLANZapine 5 MG TAB PO SCH ×2 (11:14→21:39)
[2022-07-02] MEDS: ENOXAPARIN SOD 40 MG/0.4 ML SYRINGE SC SCH (11:15)
[2022-07-02] MEDS: NICOTINE 14 MG/24HR TOPICAL PATCH TD SCH (11:16)
[2022-07-02 13:00] VITALS: BP 146/59
[2022-07-02 16:51] LABS: Basophils # (auto) 0 10 ^3/uL (0-0.2); Basophils % (auto) 0.3 % (0.0-2.0); Eosinophils # (auto) 0.1 10 ^3/uL (0-0.8); Eosinophils % (auto) 1.1 % (0.0-7.0); Hematocrit 36.9 % (41.0-53.0); Hemoglobin 12.2 g/dL (13.5-17.5); Lymphocytes # (auto) 1.6 10 ^3/uL (0.4-5.4); Lymphocytes % (auto) 15.9 % (10.0-50.0); Mean Corpuscular Hemoglobin 30.6 pg (28.0-32.0); Mean Corpuscular Hgb Conc. 33.2 g/dL (32.0-36.0); Mean Corpuscular Volume 92.3 fL (80.0-100.0); Monocytes # (auto) 0.5 10 ^3/uL (0-1.3); Monocytes % (auto) 5.2 % (0.0-12.0); Neutrophils # (auto) 7.8 10 ^3/uL (1.6-8.6); Neutrophils % (auto) 77.5 % (37.0-80.0); Red Blood Cells 3.99 10^6/uL (4.5-5.90); Red Cell Distribution Width 13.9 % (11.8-14.3); White Blood Cell 10.1 10^3/uL (4.4-10.8)
[2022-07-02 17:00] VITALS: BP 121/75
[2022-07-02 17:14] LABS: BUN/Creatinine Ratio 11.2; Calcium 10.1 mg/dL (8.5-10.1); Potassium 3.9 mmol/L (3.5-5.1)
[2022-07-02] MEDS: MIRTAZAPINE 30 MG TAB PO SCH (21:39)
[2022-07-02] MEDS: HYDROcodone-ACET 5/325MG TAB PO PRN (21:41)
[2022-07-02 22:00] VITALS: BP 111/73
[2022-07-03] MEDS: D5W/ SOD CHL 0.9%/KCL 20MEQ 1,000 ML IV SCH ×2 (00:04→18:03)
[2022-07-03] MEDS: ACCU-CHEK COMFORT CURVE STRIP VI SCH ×4 (00:12→18:02)
[2022-07-03 05:00] VITALS: BP 120/71
[2022-07-03] MEDS: InsuLIN REG 1unit/0.01ml Soln (100units/ml) SC SCH ×4 (05:44→18:00)
[2022-07-03] MEDS: LEVOTHYROXINE SODIUM 50 MCG TAB PO SCH (06:22)
[2022-07-03 08:12] VITALS: BP 117/73
[2022-07-03] MEDS: EZETIMIBE SIMVASTATIN PO SCH (10:00)
[2022-07-03] MEDS: LITHIUM CARBONATE 300 MG TAB PO SCH ×2 (10:12→21:28)
[2022-07-03] MEDS: OLANZapine 5 MG TAB PO SCH ×2 (10:12→21:29)
[2022-07-03] MEDS: ENOXAPARIN SOD 40 MG/0.4 ML SYRINGE SC SCH (10:13)
[2022-07-03] MEDS: NICOTINE 14 MG/24HR TOPICAL PATCH TD SCH (10:13)
[2022-07-03] MEDS: HYDROcodone-ACET 5/325MG TAB PO PRN ×2 (11:30→21:27)
[2022-07-03 12:33] VITALS: BP 107/75
[2022-07-03 17:00] VITALS: BP 116/62
[2022-07-03] MEDS: MIRTAZAPINE 30 MG TAB PO SCH (21:27)
[2022-07-03 22:00] VITALS: BP 122/64
[2022-07-04 05:34] VITALS: BP 97/53
[2022-07-04] MEDS: LEVOTHYROXINE SODIUM 50 MCG TAB PO SCH (05:38)
[2022-07-04] MEDS: ACCU-CHEK COMFORT CURVE STRIP VI SCH ×5 (05:44→23:22)
[2022-07-04] MEDS: InsuLIN REG 1unit/0.01ml Soln (100units/ml) SC SCH ×5 (05:44→23:22)
[2022-07-04 08:48] VITALS: BP 99/47
[2022-07-04] MEDS: OLANZapine 5 MG TAB PO SCH ×2 (09:34→23:13)
[2022-07-04] MEDS: ENOXAPARIN SOD 40 MG/0.4 ML SYRINGE SC SCH (09:34)
[2022-07-04] MEDS: LITHIUM CARBONATE 300 MG TAB PO SCH ×2 (09:35→23:13)
[2022-07-04] MEDS: NICOTINE 14 MG/24HR TOPICAL PATCH TD SCH (09:40)
[2022-07-04] MEDS: EZETIMIBE SIMVASTATIN PO SCH (11:57)
[2022-07-04] MEDS: HYDROcodone-ACET 5/325MG TAB PO PRN ×2 (12:04→23:11)
[2022-07-04 12:31] VITALS: BP 122/63
[2022-07-04 16:37] VITALS: BP 95/66
[2022-07-04 22:00] VITALS: BP 113/76
[2022-07-04] MEDS: MIRTAZAPINE 30 MG TAB PO SCH (23:15)
== END 2022-07-05 01:30 | disposition home health service (06) | DRG 329 ==
LOC: ER 13:02 → TELE-WESTW 20:15 → TELE 23:23 → TELE-WESTW 06-24 00:20 → WEST WING 07-01 15:18
PROVIDERS: ADMIT Surgery; ATTEND Internal Medicine
PROC: 0DBL0ZZ Excision of Transverse Colon, Open Approach (ICD-10-PCS; 2022-06-23)
PROC: 0DBU0ZZ Excision of Omentum, Open Approach (ICD-10-PCS; 2022-06-23)
PROC: 0WQF0ZZ Repair Abdominal Wall, Open Approach (ICD-10-PCS; principal; 2022-06-23 20:27)
DX: K43.6 Other and unspecified ventral hernia with obstruction, without gangrene (principal); K63.1 Perforation of intestine (nontraumatic); K55.9 Vascular disorder of intestine, unspecified; F31.60 Bipolar disorder, current episode mixed, unspecified; E03.9 Hypothyroidism, unspecified; G47.00 Insomnia, unspecified; Z20.822 Contact with and (suspected) exposure to COVID-19; E78.5 Hyperlipidemia, unspecified; K42.0 Umbilical hernia with obstruction, without gangrene; F17.200 Nicotine dependence, unspecified, uncomplicated; I10 Essential (primary) hypertension; Z63.4 Disappearance and death of family member; Z82.49 Family history of ischemic heart disease and other diseases of the circulatory system; Z83.3 Family history of diabetes mellitus; Z71.6 Tobacco abuse counseling
CPT/HCPCS: 36415; 71045; 74176; 74250; 80048; 80053; 80178; 82962; 83605; 83735; 84100; 84478; 84484; 85007; 85025; 85027; 85610; 86850; 86900; 86901; 87040; 87081; 93005; 93306; 96365; 96368; 97110; 97116; 97163; 97530; G0378; J0330; J0690; J0696; J1100; J1815; J2250; J2405; J2543; J2704; J3490

== ENCOUNTER → 2022-11-16 | Outpatient (CLI) | payer OTHER, MEDICAID ==
[~2022-11-16] MED LIST changes: +OLAN20TA PO
[2022-11-16 11:06] LABS: Basophils # (auto) 0 10 ^3/uL (0-0.2); Basophils % (auto) 0.5 % (0.0-2.0); Eosinophils # (auto) 0 10 ^3/uL (0-0.8); Eosinophils % (auto) 0.6 % (0.0-7.0); Hematocrit 42.4 % (41.0-53.0); Hemoglobin 14.3 g/dL (13.5-17.5); Lymphocytes # (auto) 1.8 10 ^3/uL (0.4-5.4); Lymphocytes % (auto) 27.9 % (10.0-50.0); Mean Corpuscular Hemoglobin 31.3 pg (28.0-32.0); Mean Corpuscular Hgb Conc. 33.6 g/dL (32.0-36.0); Mean Corpuscular Volume 93.3 fL (80.0-100.0); Monocytes # (auto) 0.5 10 ^3/uL (0-1.3); Monocytes % (auto) 7.3 % (0.0-12.0); Neutrophils % (auto) 63.7 % (37.0-80.0); Red Blood Cells 4.55 10^6/uL (4.5-5.90); Red Cell Distribution Width 13.9 % (11.8-14.3); White Blood Cell 6.3 10^3/uL (4.4-10.8)
[2022-11-16 11:31] LABS: Albumin 4.2 g/dL (3.4-5.0)
[2022-11-16 11:35] LABS: BUN/Creatinine Ratio 13.3; Bilirubin, Total 0.4 mg/dL (0.2-1.0); Total Protein 8.1 g/dL (6.4-8.2)
== END | disposition home or self-care (01) ==
LOC: LAB 10:34
PROVIDERS: ATTEND Specialist
DX: E03.9 Hypothyroidism, unspecified (principal); F11.20 Opioid dependence, uncomplicated; G89.4 Chronic pain syndrome; E78.1 Pure hyperglyceridemia; J44.9 Chronic obstructive pulmonary disease, unspecified; Z68.31 Body mass index [BMI] 31.0-31.9, adult
CPT/HCPCS: 36415; 80053; 80061; 84443; 85025

== ENCOUNTER 2022-12-07 11:20 | Emergency (ER) | payer OTHER, MEDICAID ==
[~2022-12-07] VITALS: Ht 172.7 cm; Wt 99.5 kg
[2022-12-07 11:31] VITALS: BP 116/73
[2022-12-07 12:08] LABS: Basophils # (auto) 0 10 ^3/uL (0-0.2); Basophils % (auto) 0.3 % (0.0-2.0); Eosinophils # (auto) 0.1 10 ^3/uL (0-0.8); Hematocrit 42.3 % (41.0-53.0); Hemoglobin 14.6 g/dL (13.5-17.5); Lymphocytes # (auto) 2.4 10 ^3/uL (0.4-5.4); Lymphocytes % (auto) 32.8 % (10.0-50.0); Mean Corpuscular Hemoglobin 31.9 pg (28.0-32.0); Mean Corpuscular Hgb Conc. 34.5 g/dL (32.0-36.0); Mean Corpuscular Volume 92.5 fL (80.0-100.0); Monocytes # (auto) 0.5 10 ^3/uL (0-1.3); Monocytes % (auto) 7.1 % (0.0-12.0); Neutrophils # (auto) 4.3 10 ^3/uL (1.6-8.6); Neutrophils % (auto) 58.8 % (37.0-80.0); Nucleated Red Blood Cells % 0.1 %; Red Blood Cells 4.58 10^6/uL (4.5-5.90); White Blood Cell 7.3 10^3/uL (4.4-10.8)
[2022-12-07 12:20] LABS: Calcium 9.3 mg/dL (8.5-10.1)
[2022-12-07 12:24] LABS: Urine Blood Negative /uL (Negative); Urine Specific Gravity 1.012 (1.001-1.035)
[2022-12-07 12:26] LABS: BUN/Creatinine Ratio 16.7; Bilirubin, Total 0.4 mg/dL (0.2-1.0); Total Protein 7.6 g/dL (6.4-8.2)
[2022-12-07] MEDS ORDERED: DOCU-94 PO (13:17)
[2022-12-07] MEDS ORDERED: DOCUSATE SOD 100 MG CAP PO ONE (13:30)
== END 2022-12-07 16:24 | disposition home or self-care (01) ==
LOC: ER 11:20
DX: K42.9 Umbilical hernia without obstruction or gangrene (principal); R10.32 Left lower quadrant pain; K59.00 Constipation, unspecified; E11.9 Type 2 diabetes mellitus without complications; I10 Essential (primary) hypertension; Z79.899 Other long term (current) drug therapy; Z98.890 Other specified postprocedural states
CPT/HCPCS: 36415; 74176; 80053; 81003; 85025; 93005; 99285; J7030

== ENCOUNTER → 2023-02-22 | Outpatient (CLI) | payer MEDICAID ==
[~2023-02-22] MED LIST changes: +DOCU-94 PO
[2023-02-22 11:29] LABS: Basophils # (auto) 0 10 ^3/uL (0-0.2); Basophils % (auto) 0.3 % (0.0-2.0); Eosinophils # (auto) 0.1 10 ^3/uL (0-0.8); Eosinophils % (auto) 1.3 % (0.0-7.0); Hematocrit 39.2 % (41.0-53.0); Hemoglobin 13.5 g/dL (13.5-17.5); Lymphocytes # (auto) 2.3 10 ^3/uL (0.4-5.4); Lymphocytes % (auto) 34.4 % (10.0-50.0); Mean Corpuscular Hemoglobin 31.4 pg (28.0-32.0); Mean Corpuscular Hgb Conc. 34.3 g/dL (32.0-36.0); Mean Corpuscular Volume 91.5 fL (80.0-100.0); Monocytes # (auto) 0.4 10 ^3/uL (0-1.3); Monocytes % (auto) 6.5 % (0.0-12.0); Neutrophils # (auto) 3.9 10 ^3/uL (1.6-8.6); Neutrophils % (auto) 57.5 % (37.0-80.0); Nucleated Red Blood Cells % 0.2 %; Red Blood Cells 4.29 10^6/uL (4.5-5.90); Red Cell Distribution Width 13.6 % (11.8-14.3); White Blood Cell 6.8 10^3/uL (4.4-10.8)
[2023-02-22 12:52] LABS: Albumin 3.9 g/dL (3.4-5.0); Calcium 9.4 mg/dL (8.5-10.1); Potassium 4.1 mmol/L (3.5-5.1)
[2023-02-22 12:58] LABS: BUN/Creatinine Ratio 14.9 (10.0-20.0); Bilirubin, Total 0.4 mg/dL (0.2-1.0); Total Protein 7.5 g/dL (6.4-8.2)
== END | disposition home or self-care (01) ==
LOC: LAB 11:03
PROVIDERS: ATTEND Internal Medicine Infectious Disease
DX: F31.72 Bipolar disorder, in full remission, most recent episode hypomanic (principal)
CPT/HCPCS: 36415; 80053; 80061; 80178; 83036; 84443; 85025

== ENCOUNTER → 2023-05-31 | Outpatient (CLI) | payer OTHER, MEDICAID ==
[~2023-05-31] MED LIST changes: -MIRT-66 PO; +MIRT-94 PO
[2023-05-31 10:59] LABS: Basophils # (auto) 0 10 ^3/uL (0-0.2); Basophils % (auto) 0.3 % (0.0-2.0); Eosinophils # (auto) 0.1 10 ^3/uL (0-0.8); Eosinophils % (auto) 1.1 % (0.0-7.0); Hematocrit 40.5 % (41.0-53.0); Hemoglobin 13.8 g/dL (13.5-17.5); Lymphocytes # (auto) 2.2 10 ^3/uL (0.4-5.4); Lymphocytes % (auto) 33.4 % (10.0-50.0); Mean Corpuscular Hemoglobin 31.1 pg (28.0-32.0); Mean Corpuscular Volume 91.5 fL (80.0-100.0); Monocytes # (auto) 0.5 10 ^3/uL (0-1.3); Monocytes % (auto) 7.1 % (0.0-12.0); Neutrophils # (auto) 3.8 10 ^3/uL (1.6-8.6); Neutrophils % (auto) 58.1 % (37.0-80.0); Red Blood Cells 4.43 10^6/uL (4.5-5.90); Red Cell Distribution Width 14.1 % (11.8-14.3); White Blood Cell 6.6 10^3/uL (4.4-10.8)
[2023-05-31 11:44] LABS: Potassium 4.1 mmol/L (3.5-5.1)
[2023-05-31 11:55] LABS: Albumin 3.9 g/dL (3.4-5.0); BUN/Creatinine Ratio 15.9 (10.0-20.0); Bilirubin, Total 0.4 mg/dL (0.2-1.0); Calcium 9.6 mg/dL (8.5-10.1); Total Protein 7.1 g/dL (6.4-8.2)
== END | disposition home or self-care (01) ==
LOC: LAB 10:33
PROVIDERS: ATTEND Internal Medicine Infectious Disease
DX: E03.9 Hypothyroidism, unspecified (principal); F11.20 Opioid dependence, uncomplicated; J44.9 Chronic obstructive pulmonary disease, unspecified; Z68.30 Body mass index [BMI] 30.0-30.9, adult
CPT/HCPCS: 36415; 80053; 82465; 83036; 84439; 84443; 85025; 86803

== ENCOUNTER → 2023-11-23 | Outpatient (CLI) | payer OTHER, MEDICAID ==
[2023-11-23 12:18] LABS: Basophils # (auto) 0 10 ^3/uL (0-0.2); Basophils % (auto) 0.4 % (0.0-2.0); Eosinophils # (auto) 0.1 10 ^3/uL (0-0.8); Hematocrit 42.2 % (41.0-53.0); Hemoglobin 14.2 g/dL (13.5-17.5); Lymphocytes # (auto) 2.4 10 ^3/uL (0.4-5.4); Lymphocytes % (auto) 31.3 % (10.0-50.0); Mean Corpuscular Hemoglobin 31.4 pg (28.0-32.0); Mean Corpuscular Hgb Conc. 33.6 g/dL (32.0-36.0); Mean Corpuscular Volume 93.6 fL (80.0-100.0); Monocytes # (auto) 0.5 10 ^3/uL (0-1.3); Monocytes % (auto) 6.6 % (0.0-12.0); Neutrophils # (auto) 4.7 10 ^3/uL (1.6-8.6); Neutrophils % (auto) 60.7 % (37.0-80.0); Nucleated Red Blood Cells % 0.2 %; Red Blood Cells 4.51 10^6/uL (4.5-5.90); Red Cell Distribution Width 13.9 % (11.8-14.3); White Blood Cell 7.8 10^3/uL (4.4-10.8)
[2023-11-23 12:44] LABS: Alanine Aminotransferase 23 U/L (7-40); Albumin 4.5 g/dL (3.2-4.8); Alkaline Phosphatase 94 U/L (46-116); Anion Gap 3 (5-15); Aspartate Aminotransferase 22 U/L (13-40); BUN/Creatinine Ratio 9.8 (10.0-20.0); Bilirubin, Total 0.5 mg/dL (0.2-1.0); Blood Urea Nitrogen 11 mg/dL (9-23); Calcium 10.2 mg/dL (8.5-10.1); Carbon Dioxide 25 mmol/L (20-30); Chloride 113 mmol/L (98-107); Cholesterol 140 mg/dL (< 200); Glucose 99 mg/dL (74-106); HDL Cholesterol 35 mg/dL (40-59); LDL Cholesterol 78 mg/dL (< 100); Potassium 4.1 mmol/L (3.5-5.1); Sodium 141 mmol/L (136-145); Total Protein 6.8 g/dL (5.7-8.2); Triglycerides 203 mg/dL (< 150)
== END | disposition home or self-care (01) ==
LOC: LAB 11:39
PROVIDERS: ATTEND Specialist
DX: Z00.00 Encounter for general adult medical examination without abnormal findings (principal); N18.2 Chronic kidney disease, stage 2 (mild); E66.01 Morbid (severe) obesity due to excess calories; G25.70 Drug induced movement disorder, unspecified; K43.2 Incisional hernia without obstruction or gangrene; J43.9 Emphysema, unspecified
CPT/HCPCS: 36415; 80053; 80061; 84153; 85025

== ENCOUNTER 2024-03-30 06:15 | Inpatient (IN) | payer OTHER, MEDICAID ==
[2024-03-27 12:29] LABS: INR 0.96 (0.9-1.15); Partial Thromboplastin Time 28.8 SEC (24.5-34.5); Prothrombin Time 10.2 sec (9.3-11.8)
[~2024-03-30] VITALS: Ht 172.7 cm; Wt 96.0 kg
[~2024-03-30 06:15] MED LIST changes: -ZIPR80CA37 PO; +ZIPR80CA43 PO
[2024-03-30] MEDS: ceFAZolin 2 GM/D5W50ml 50 ML IV ONE (07:30)
[2024-03-30] MEDS ORDERED: KETAMINE 50mg/ML 1ml syringe ONE (08:09)
[2024-03-30] MEDS ORDERED: ROCURONIUM 10MG/ML 10ML VIAL IV ONE (08:10)
[2024-03-30] MEDS ORDERED: SODIUM CHLORIDE LOCK 10 ML ONE (08:10)
[2024-03-30] MEDS ORDERED: PROPOFOL 10 MG/ML 20 ML IV ONE (08:10)
[2024-03-30] MEDS ORDERED: fentaNYL CITRATE 100 MCG/2 ML VL ONE (08:10)
[2024-03-30] MEDS ORDERED: LIDOCAINE 1% INJ PF 5ML AMP ONE (08:10)
[2024-03-30] MEDS ORDERED: MEPERIDINE HCL (50 MG/ML) 1 ML VIAL ONE (08:10)
[2024-03-30] MEDS ORDERED: ONDANSETRON HCL 4 MG/2 ML VIAL ONE (08:10)
[2024-03-30] MEDS ORDERED: MIDAZOLAM HCL 2MG/2ML 2ml VIAL (1mg/ml) ONE (08:10)
[2024-03-30] MEDS: LIDOCAINE W/ EPINEPHRINE 1% 20ML VIAL ONE (08:35)
[2024-03-30] MEDS ORDERED: HYDROmorphone HCL 2 MG/ML VL/or syr IV PRN (08:45)
[2024-03-30] MEDS ORDERED: MORPHINE SULFATE INJ 2 MG/ml SYRG IV PRN (08:45)
[2024-03-30] MEDS ORDERED: fentaNYL CITRATE 100 MCG/2 ML VL IV PRN (08:45)
[2024-03-30] MEDS: METOCLOPRAMIDE HCL 5MG/ml INJ 2ml VIAL IV ONE (08:45)
[2024-03-30] MEDS: LIDOCAINE 1% HCL (LOCAL ANESTH.) INJ 20ML MDV ONE (08:53)
[2024-03-30] MEDS: DOXAPRAM HCL 20 MG/ML 20ML VIAL INJ IV ONE (09:23)
[2024-03-30 10:47] VITALS: PULSE 81; RESP 12; O2SAT 99
[2024-03-30] MEDS: HYDROmorphone HCL 2 MG/ML VL/or syr ONE (11:42)
[2024-03-30] MEDS: HYDROmorphone HCL 2 MG/ML VL/or syr IV PRN (11:45)
[2024-03-30] MEDS ORDERED: ACETAMINOPHEN 500 MG TAB PO PRN (13:15)
[2024-03-30] MEDS: NICOTINE 14 MG/24HR TOPICAL PATCH TD ONE (13:15)
[2024-03-30] MEDS ORDERED: ONDANSETRON HCL 4 MG/2 ML VIAL IV PRN (13:15)
[2024-03-30] MEDS: MIRTAZAPINE 30 MG TAB PO SCH (13:33)
[2024-03-30] MEDS: SODIUM CHLORIDE 0.9% 1,000 ML IV SCH (13:33)
[2024-03-30] MEDS ORDERED: NEOSTIGMINE 1 MG/ML INJ (10mg/10ML VIAL) IV ONE (13:55)
[2024-03-30 17:00] VITALS: BP 124/74; PULSE 67; RESP 16; TEMP 98.9; O2SAT 93
[2024-03-30 20:00] VITALS: O2SAT 95
[2024-03-30 21:00] VITALS: BP 112/69; PULSE 72; RESP 20; TEMP 98.2; O2SAT 93
[2024-03-30] MEDS: HYDROcodone-ACET 5/325MG TAB PO PRN (21:20)
[2024-03-31 01:00] VITALS: BP 118/58; PULSE 64; RESP 20; TEMP 97.9; O2SAT 91
[2024-03-31 05:00] VITALS: BP 113/62; PULSE 65; RESP 20; TEMP 98.4; O2SAT 93
[2024-03-31] MEDS: LEVOTHYROXINE SODIUM 100 MCG TAB PO SCH (05:09)
[2024-03-31 06:11] LABS: Basophils # (auto) 0 10 ^3/uL (0-0.2); Basophils % (auto) 0.1 % (0.0-2.0); Eosinophils # (auto) 0 10 ^3/uL (0-0.8); Hematocrit 39.2 % (41.0-53.0); Hemoglobin 13.2 g/dL (13.5-17.5); Lymphocytes # (auto) 1.4 10 ^3/uL (0.4-5.4); Lymphocytes % (auto) 14.7 % (10.0-50.0); Mean Corpuscular Hgb Conc. 33.7 g/dL (32.0-36.0); Mean Corpuscular Volume 94.8 fL (80.0-100.0); Monocytes # (auto) 0.5 10 ^3/uL (0-1.3); Monocytes % (auto) 4.8 % (0.0-12.0); Neutrophils # (auto) 7.7 10 ^3/uL (1.6-8.6); Neutrophils % (auto) 80.4 % (37.0-80.0); Nucleated Red Blood Cells % 0.1 %; Red Blood Cells 4.13 10^6/uL (4.5-5.90); Red Cell Distribution Width 14.2 % (11.8-14.3); White Blood Cell 9.5 10^3/uL (4.4-10.8)
[2024-03-31] MEDS: MORPHINE SULFATE INJ 2 MG/ml SYRG IV PRN (06:22)
[2024-03-31 06:46] LABS: Alanine Aminotransferase 18 U/L (7-40); Alkaline Phosphatase 86 U/L (46-116); Anion Gap 7 (5-15); Bilirubin, Total 0.6 mg/dL (0.2-1.0); Blood Urea Nitrogen 12 mg/dL (9-23); Carbon Dioxide 20 mmol/L (20-30); Chloride 113 mmol/L (98-107); Glucose 107 mg/dL (74-106); Potassium 4.3 mmol/L (3.5-5.1); Sodium 140 mmol/L (136-145); Total Protein 6.6 g/dL (5.7-8.2)
[2024-03-31 07:08] LABS: Aspartate Aminotransferase 14 U/L (13-40)
[2024-03-31 07:18] LABS: Urine Bacteria None Seen /hpf (None Seen)
[2024-03-31 07:31] LABS: Urine Blood Negative /uL (Negative); Urine Clarity Clear (Clear); Urine Color Light-Yellow (Yellow); Urine Protein, UAD Negative (Negative); Urine Specific Gravity 1.015 (1.001-1.035); Urine Urobilinogen Normal (Negative); Urine WBC 6 /hpf (0 - 3); Urine pH 6.5 (5.0-9.0)
[2024-03-31 09:00] VITALS: BP 132/71; PULSE 68; RESP 18; TEMP 98.4; O2SAT 95
[2024-03-31] MEDS: LITHIUM CARBONATE 300 MG TAB PO SCH (10:17)
[2024-03-31] MEDS: NICOTINE 14 MG/24HR TOPICAL PATCH TD SCH (10:17)
[2024-03-31 12:58] VITALS: BP 132/71; PULSE 68; RESP 18; TEMP 98.4; O2SAT 95
[2024-03-31 13:00] VITALS: BP 120/60; PULSE 79; RESP 16; TEMP 98.1; O2SAT 94
== END 2024-03-31 13:56 | disposition home or self-care (01) | DRG 355 ==
LOC: SUR 06:15 → OVERFLOW 13:15 → WEST WING 17:56
PROVIDERS: ADMIT Internal Medicine; ATTEND Internal Medicine
PROC: 0WUF0JZ Supplement Abdominal Wall with Synthetic Substitute, Open Approach (ICD-10-PCS; principal; 2024-03-30 08:56)
DX: K43.9 Ventral hernia without obstruction or gangrene (principal); E78.5 Hyperlipidemia, unspecified; E03.9 Hypothyroidism, unspecified; F31.9 Bipolar disorder, unspecified; F17.210 Nicotine dependence, cigarettes, uncomplicated; K43.2 Incisional hernia without obstruction or gangrene; E66.9 Obesity, unspecified; Z68.32 Body mass index [BMI] 32.0-32.9, adult
CPT/HCPCS: 36415; 80053; 81001; 84443; 85025; 85610; 85730; 88302; G0378; J2001; J2250; J2405; J2704

== ENCOUNTER → 2024-04-17 | Outpatient (CLI) | payer OTHER, MEDICAID ==
[2024-04-17 09:55] LABS: Basophils # (auto) 0 10 ^3/uL (0-0.2); Basophils % (auto) 0.4 % (0.0-2.0); Eosinophils # (auto) 0.2 10 ^3/uL (0-0.8); Eosinophils % (auto) 2.2 % (0.0-7.0); Hematocrit 36.9 % (41.0-53.0); Lymphocytes # (auto) 1.9 10 ^3/uL (0.4-5.4); Lymphocytes % (auto) 24.2 % (10.0-50.0); Mean Corpuscular Hemoglobin 32.4 pg (28.0-32.0); Mean Corpuscular Hgb Conc. 35.1 g/dL (32.0-36.0); Mean Corpuscular Volume 92.1 fL (80.0-100.0); Monocytes # (auto) 0.5 10 ^3/uL (0-1.3); Monocytes % (auto) 6.4 % (0.0-12.0); Neutrophils # (auto) 5.2 10 ^3/uL (1.6-8.6); Neutrophils % (auto) 66.8 % (37.0-80.0); Red Cell Distribution Width 13.7 % (11.8-14.3); White Blood Cell 7.8 10^3/uL (4.4-10.8)
[2024-04-17 10:58] LABS: Alanine Aminotransferase 18 U/L (7-40); Alkaline Phosphatase 95 U/L (46-116); Anion Gap 5 (5-15); BUN/Creatinine Ratio 13.9 (10.0-20.0); Blood Urea Nitrogen 14 mg/dL (9-23); Calcium 10.3 mg/dL (8.5-10.1); Carbon Dioxide 24 mmol/L (20-30); Chloride 113 mmol/L (98-107); Glucose 104 mg/dL (74-106); LDL Cholesterol 73 mg/dL (< 100); Potassium 3.9 mmol/L (3.5-5.1); Sodium 142 mmol/L (136-145); Triglycerides 143 mg/dL (< 150)
[2024-04-17 10:59] LABS: Albumin 4.3 g/dL (3.2-4.8); Aspartate Aminotransferase 13 U/L (13-40); Bilirubin, Total 0.4 mg/dL (0.2-1.0); Cholesterol 132 mg/dL (< 200); HDL Cholesterol 31 mg/dL (40-59); Total Protein 6.9 g/dL (5.7-8.2)
[2024-04-18 13:07] LABS: Free Thyroxine Index 1.7 (1.2-4.9); Thyroxine (T4) 6.2 ug/dL (4.5-12.0)
== END | disposition home or self-care (01) ==
LOC: LAB 09:39
PROVIDERS: ATTEND Specialist
DX: N18.2 Chronic kidney disease, stage 2 (mild) (principal)
CPT/HCPCS: 36415; 80053; 80061; 84443; 85025

== ENCOUNTER → 2024-11-13 | Outpatient (CLI) | payer OTHER, MEDICAID ==
[~2024-11-13] MED LIST changes: -LEV50T PO; +LEVO-848 PO
[2024-11-13 12:32] LABS: Basophils # (auto) 0 10 ^3/uL (0-0.2); Basophils % (auto) 0.2 % (0.0-2.0); Eosinophils # (auto) 0 10 ^3/uL (0-0.8); Eosinophils % (auto) 0.5 % (0.0-7.0); Hematocrit 40.8 % (41.0-53.0); Hemoglobin 13.9 g/dL (13.5-17.5); Lymphocytes # (auto) 1.8 10 ^3/uL (0.4-5.4); Lymphocytes % (auto) 25.6 % (10.0-50.0); Mean Corpuscular Hemoglobin 32.4 pg (28.0-32.0); Mean Corpuscular Hgb Conc. 34.1 g/dL (32.0-36.0); Mean Corpuscular Volume 95.1 fL (80.0-100.0); Monocytes # (auto) 0.4 10 ^3/uL (0-1.3); Monocytes % (auto) 5.5 % (0.0-12.0); Neutrophils # (auto) 4.9 10 ^3/uL (1.6-8.6); Neutrophils % (auto) 68.2 % (37.0-80.0); Platelet Count (auto) 220 10^3/uL (140-450); Red Blood Cells 4.29 10^6/uL (4.5-5.90); Red Cell Distribution Width 13.4 % (11.8-14.3); White Blood Cell 7.2 10^3/uL (4.4-10.8)
[2024-11-13 12:46] LABS: Alanine Aminotransferase 16 U/L (7-40); Albumin 4.7 g/dL (3.2-4.8); Alkaline Phosphatase 98 U/L (46-116); Anion Gap 6 (5-15); Aspartate Aminotransferase 18 U/L (13-40); BUN/Creatinine Ratio 15.2 (10.0-20.0); Blood Urea Nitrogen 20 mg/dL (9-23); Calcium 10.2 mg/dL (8.7-10.4); Carbon Dioxide 25 mmol/L (20-31); Cholesterol 130 mg/dL (< 200); LDL Cholesterol 66 mg/dL (< 100); Sodium 141 mmol/L (136-145)
[2024-11-13 12:47] LABS: Bilirubin, Total 0.5 mg/dL (0.2-1.0); Total Protein 7.2 g/dL (5.7-8.2)
[2024-11-13 12:48] LABS: Chloride 110 mmol/L (98-107); Glucose 110 mg/dL (74-106)
[2024-11-13 12:49] LABS: HDL Cholesterol 39 mg/dL (40-59); Triglycerides 210 mg/dL (< 150)
== END | disposition home or self-care (01) ==
LOC: LAB 12:04
DX: Z13.1 Encounter for screening for diabetes mellitus (principal)
CPT/HCPCS: 36415; 80053; 80061; 83036; 84153; 84443; 85025

== ENCOUNTER 2025-05-28 09:40 | Outpatient (CLI) | payer OTHER, MEDICAID ==
[2025-05-28 09:59] LABS: Hematocrit 42.5 % (41.0-53.0); Hemoglobin 14.8 g/dL (13.5-17.5); Mean Corpuscular Hemoglobin 32.9 pg (28.0-32.0); Mean Corpuscular Volume 94.1 fL (80.0-100.0); Nucleated Red Blood Cells % 0.1 %
[2025-05-28 10:49] LABS: Alanine Aminotransferase 13 U/L (7-40); Alkaline Phosphatase 100 U/L (46-116); Anion Gap 7 (5-15); BUN/Creatinine Ratio 12.5 (10.0-20.0); Blood Urea Nitrogen 14 mg/dL (9-23); Carbon Dioxide 27 mmol/L (20-31); Cholesterol 174 mg/dL (< 200); HDL Cholesterol 40 mg/dL (40-59); Potassium 4.8 mmol/L (3.5-5.1); Sodium 142 mmol/L (136-145); Total Protein 7.4 g/dL (5.7-8.2)
[2025-05-28 10:50] LABS: Bilirubin, Total 0.4 mg/dL (0.2-1.0)
[2025-05-28 10:52] LABS: Albumin 4.9 g/dL (3.2-4.8); Calcium 10.5 mg/dL (8.7-10.4); Chloride 108 mmol/L (98-107); Glucose 110 mg/dL (74-106); Triglycerides 185 mg/dL (< 150)
[2025-05-29 08:07] LABS: Free Thyroxine Index 2.0 (1.2-4.9)
== END 2025-05-28 17:00 | disposition home or self-care (01) ==
LOC: LAB 09:40
PROVIDERS: ATTEND Specialist
DX: I12.9 Hypertensive chronic kidney disease with stage 1 through stage 4 chronic kidney disease, or unspecified chronic kidney disease (principal); N18.31 Chronic kidney disease, stage 3a; E03.9 Hypothyroidism, unspecified; J43.9 Emphysema, unspecified; H26.223 Cataract secondary to ocular disorders (degenerative) (inflammatory), bilateral; R53.2 Functional quadriplegia
CPT/HCPCS: 36415; 80053; 80061; 84153; 84443; 85025